=== PATIENT | female | born 1955 | race Hispanic/Latino ===

== ENCOUNTER 2018-11-09 14:13 | Emergency (ER) | payer BC, OTHER ==
--- NOTE | 2018-11-09 15:35 | RAD REPORT ---
EXAM DESCRIPTION: CT - Spine Lumbar Wo Con - 11/09/2018 3:20 pm CLINICAL HISTORY: Radiculopathy. PAIN COMPARISON: No comparisons TECHNIQUE: Axial noncontrast CT imaging of the lumbar spine was performed with coronal and sagittal re-formatted images. All CT scans are performed using dose optimization technique as appropriate and may include automated exposure control or mA/KV adjustment according to patient size. FINDINGS: Minimally displaced fracture of the right L3 transverse process is noted. No additional fr acture is identified. No aggressive marrow pattern or malalignment. Paraspinal tissues are normal in thickness. No paraspinal abscess or hematoma seen. Moderate degenerative change with posterior osteophytes at L5-S1. IMPRESSION: L3 right transverse process fracture. Consider MRI follow-up for assessment of disc disease if clinically desired.
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
--- NOTE | 2018-11-09 15:44 | ER ---
Nurse's Notes [facility] Name: Mandy Oneil Age: 63 yrs Sex: Female : 1955 Arrival Date: 11/09/2018 Time: 14:17 Bed 5 Private MD: Renan Celaya V Diagnosis: Fracture of unspecified lumbar vertebra-Right Transverse process L3 Presentation: 11/09 14:28 Presenting complaint: Patient states: She had a syncopal episode on Monday in the 1 bathroom, she was evaluated at home by EMS, but decided not to be evaluated at the hospital. Yesterday she starting having lower back pain. Transition of care: patient was not received from another setting of care. Onset of symptoms was November 08, 2018. Risk Assessment: Do you want to hurt yourself or someone else? Patient reports no desire to harm self or others. Initial Sepsis Screen: Does the patient meet any 2 criteria? No. Patient's initial sepsis screen is negative. Does the patient have a suspected source of infection? No. Patient's initial sepsis screen is negative. Care prior to arrival: None. 14:28 Method Of Arrival: Ambulatory [facility] 14:28 Acuity: PASCUAL 3 aj1 Triage Assessment: 14:31 General: Appears in no apparent distress. comfortable, Behavior is calm, cooperative, aj1 appropriate for age. Pain: Complains of pain in back Pain currently is 8 out of 10 on a pain scale. Neuro: Level of Consciousness is awake, alert, obeys commands. Cardiovascular: Patient's skin is warm and dry. Respiratory: Airway is patent Respiratory effort is even, unlabored, Respiratory pattern is regular, symmetrical. Musculoskeletal: Range of motion: intact in all extremities. Historical: - Allergies: 14:31 No Known Allergies; aj1 - PMHx: 14:31 Hypertension; aj1 - Immunization history:: Flu vaccine is up to date. - Social history:: Smoking status: Patient/guardian denies using tobacco. - Ebola Screening: : Patient denies travel to an Ebola-affected area in the 21 days before illness onset. Screenin:44 Abuse screen: Denies threats or abuse. Denies injuries from another. Nutritional bp screening: No deficits noted. Tuberculosis screening: No symptoms or risk factors identified. Fall Risk Fall in past 12 months (25 points). No secondary diagnosis (0 pts). No IV (0 pts). Ambulatory Aid- None/Bed Rest/Nurse Assist (0 pts). Gait- Normal/Bed Rest/Wheelchair (0 pts) Mental Status- Oriented to own ability (0 pts). Total Muniz Fall Scale indicates Low Risk Score (25-44 pts). Fall prevention measures have been instituted. Side Rails Up X 2 Placed close to Nursing Station Frequent Obs/Assesments occuring Family Present and informed to notify staff if they need to leave bedside As available Patient and Family Educated on Fall Prevention Program and strategies. Assessment: 14:30 General: Appears in no apparent distress. comfortable, Behavior is calm, cooperative, bp appropriate for age. Pain: Complains of pain in back. Neuro: Level of Consciousness is awake, alert, obeys commands, Oriented to person, place, time, situation, Appropriate for age. Cardiovascular: No deficits noted. Respiratory: Airway is patent Respiratory effort is even, unlabored, Respiratory pattern is regular, symmetrical. GI: No signs and/or symptoms were reported involving the gastrointestinal system. : No signs and/or symptoms were reported regarding the genitourinary system. EENT: No deficits noted. Derm: No deficits noted. Musculoskeletal: Circulation, motion, and sensation intact. Range of motion: intact in all extremities. 16:20 Reassessment: PT D/C HOME AMBULATORY WITH FAMILY, DX WITH L3 TRANSVERSE FX. bp Vital Signs: 14:31 BP 176 / 77; Pulse 76; Resp 18; Temp 97.4; Pulse Ox 100% on R/A; Weight 53.98 kg (R); aj1 Height 4 ft. 11 in. (149.86 cm) (R); Pain 8/10; 15:50 BP 158 / 79; Pulse 64; Resp 14; Pulse Ox 100% ; bp 14:31 Body Mass Index 24.03 (53.98 kg, 149.86 cm) aj1 ED Course: 14:17 Patient arrived in ED. mr 14:18 Renan Celaya MD is Private Physician. mr 14:31 Triage completed. aj1 14:31 Arm band placed on Patient placed in waiting room, Patient notified of wait time. aj1 14:35 Fabian Osman, DEION is Primary Nurse. bp 14:44 Sunitha Wick FNP-C is PHCP. kb 14:44 Mt Connelly MD is Attending Physician. kb 15:[address] vm2 15:21 CT completed. Patient tolerated procedure well. Patient moved back from CT. vm2 15:21 CT Lumbar Spine Wo Con In Process Unspecified. EDMS 15:43 Renan Celaya MD is Referral Physician. kb 15:44 Patient has correct armband on for positive identification. Placed in gown. Bed in low bp position. Call light in reach. Side rails up X2. 15:50 No provider procedures requiring assistance completed. Patient did not have IV access bp during this emergency room visit. Administered Medications: 16:00 Not Given (pt family reports hallucinations): [place] 5 mg-325 mg 1 tabs PO once sg 16:00 Drug: TORadol 60 mg Route: IM; Site: right ventrogluteal; sg 16:20 Follow up: Response: Pain is decreased bp Outcome: 15:43 Discharge ordered by MD. kb 16:21 Discharged to home ambulatory, with family. bp 16:21 Condition: stable 16:21 Discharge instructions given to patient, Instructed on discharge instructions, follow up and referral plans. medication usage, Demonstrated understanding of instructions, follow-up care, medications, Prescriptions given X 2. 16:22 Patient left the ED. bp Signatures: Dispatcher [employer] EDMS Sunitha Wick, MATZO FORMING MACHINE OPERATOR-C MATZO FORMING MACHINE OPERATOR-Ckb Oksana Mcbride, DEION RN Harshad oDminique RN RN Siria Grajeda mr FischerLashon 2 Fabian Osman RN RN bp Corrections: (The following items were deleted from the chart) 15:59 15:56 Sal[place] 5 mg-325 mg 1 tabs PO sg sg
[2018-11-09] MEDS ORDERED: HYDROCODONE/APAP 5/325 MG TAB ONE (16:03)
[2018-11-09] MEDS ORDERED: KETOROLAC 30 MG/ML INJ ONE (16:11)
== END 2018-11-09 16:22 | disposition home or self-care (01) ==
LOC: ER 14:13
DX: S32.038A Other fracture of third lumbar vertebra, initial encounter for closed fracture (principal); W01.0XXA Fall on same level from slipping, tripping and stumbling without subsequent striking against object, initial encounter; Y93.01 Activity, walking, marching and hiking; I10 Essential (primary) hypertension
CPT/HCPCS: 72131; 96372; 99284